=== PATIENT | female | born 1940 | race Caucasian/White ===

== ENCOUNTER → 2024-06-01 15:07 | Outpatient (REF) | payer MEDICARE, BC, SELFPAY | LOC: HWRAD 15:07 | PROVIDERS: ATTENDING PHYSICIAN Podiatrist Primary Podiatric Medicine; FAMILY PHYSICIAN Internal Medicine | DX: S92.902B Unspecified fracture of left foot, initial encounter for open fracture (principal) | CPT/HCPCS: 73630 ==

== ENCOUNTER → 2024-07-13 06:25 | Day surgery (SDC) | payer MEDICARE, BC, SELFPAY | LOC: GI 06:25 | PROVIDERS: ATTENDING PHYSICIAN Surgery | DX: K62.5 Hemorrhage of anus and rectum (principal); K63.89 Other specified diseases of intestine; K64.9 Unspecified hemorrhoids; Z98.0 Intestinal bypass and anastomosis status; D12.5 Benign neoplasm of sigmoid colon; D12.8 Benign neoplasm of rectum; D12.3 Benign neoplasm of transverse colon | CPT/HCPCS: 45385; 45380; 88305 ==

== ENCOUNTER 2024-08-17 06:33 | Day surgery (SDC) | payer MEDICARE, BC, SELFPAY ==
[2024-08-17 14:45] VITALS: BMI 28.6
[2024-08-17 14:46] VITALS: BP 143/89
[2024-08-17 16:24] VITALS: BP 107/49
[2024-08-17 16:30] VITALS: BP 117/75
[2024-08-17 16:45] VITALS: BP 126/67
== END 2024-08-17 17:09 | disposition home or self-care (01) ==
LOC: SDS 06:33
PROVIDERS: ATTENDING PHYSICIAN Internal Medicine Gastroenterology
DX: D12.3 Benign neoplasm of transverse colon (principal); D12.5 Benign neoplasm of sigmoid colon; K64.0 First degree hemorrhoids; Z98.0 Intestinal bypass and anastomosis status
CPT/HCPCS: 45390; 45385; 88305

== ENCOUNTER → 2024-11-24 10:37 | Outpatient (REF) | payer MEDICARE, BC, SELFPAY ==
[2024-11-24 11:58] LABS: % Basophils 0.6 % (0-2); % Eosinophils 1.2 % (0-6); % Immature Granulocytes 0.3 % (0-0.5); % Monocytes 8.4 % (1.7-9.3); % Neutrophils 59.5 % (42.2-75.2); Absolute Eosinophils 0.1 10^3/uL (0-0.7); Absolute Lymphocytes 2.2 10^3/uL (1.2-3.4); Absolute Monocytes 0.6 10^3/uL (0.1-0.6); Absolute Neutrophils 4.3 10^3/uL (1.4-6.5); Hemoglobin 12.8 g/dL (12.0-16.0); Mean Corp Hgb Conc. 32.8 g/dL (33.0-37.0); Mean Corpuscular Volume 91.5 fL (81.0-99.0); Mean Platelet Volume 9.9 fL (7.4-10.4); Nucleated Red Blood Cells % 0 %; Platelet Count 283 10^3/uL (130-400); Red Blood Cell Count 4.26 10^6/uL (4.20-5.40); Red Cell Dist. Width 13.8 % (11.5-14.5); White Blood Cell Count 7.3 10^3/uL (4.8-10.8)
[2024-11-24 13:15] LABS: ALT (SGPT) 23 U/L (0-35); AST (SGOT) 35 U/L (14-36); Albumin 4.2 g/dl (3.5-5.0); Alkaline Phosphatase 43 U/L (38-126); Blood Urea Nitrogen 23 mg/dl (7-17); Calcium 9.6 mg/dl (8.4-10.2); Carbon Dioxide 24 mmol/L (22-30); Chloride 104 mmol/L (98-107); Glucose 90 mg/dl (70-99); HDL Cholesterol 48 mg/dl; LDL Cholesterol, Calculated 103 mg/dl; Potassium 4.6 mmol/L (3.5-5.1); Sodium 140 mmol/L (135-145); Total Bilirubin 0.6 mg/dl (0.2-1.3); Total Cholesterol 178 mg/dl (50-199); Total Protein 7.2 g/dl (6.3-8.2); Triglyceride 138 mg/dl (10-149); Very Low Density Lipoprotein 27 mg/dl (0-30); eGFR 44.08
== END ==
LOC: REG 10:37
PROVIDERS: ATTENDING PHYSICIAN Internal Medicine
DX: Z00.00 Encounter for general adult medical examination without abnormal findings (principal); E78.5 Hyperlipidemia, unspecified
CPT/HCPCS: 36415; 80053; 80061; 85025

== ENCOUNTER → 2025-09-19 16:05 | Outpatient (REF) | payer MEDICARE, BC, SELFPAY | LOC: RAD 16:05 | PROVIDERS: ATTENDING PHYSICIAN Nurse Practitioner Acute Care | DX: M25.511 Pain in right shoulder (principal) | CPT/HCPCS: 73030 ==